=== PATIENT | female | born 1940 | race Caucasian/White ===

== ENCOUNTER 2024-06-13 10:01 | Outpatient (OUT) | payer MEDICARE, SELFPAY ==
--- NOTE | 2024-06-13 | XR_ITS ---
[place] [id number] Patient Name: HORTENSIA FERNANDES MRN: [id number] date: 1940 Sex: F Assigned Patient Location: Current Patient Location: Accession/Order Number: [id number] Exam Date: 06/13/2024 10:40 Report Date: 06/15/2024 06:55 At the request of: ERLIN MATA Procedure: XR lumbar spine min 4V EXAMINATION: XR lumbar spine min 4V HISTORY: LUMBAR SPINE PAIN COMPARISON: No relevant comparison available. FINDINGS: BONES: Prominent right convex curvature of lumbar spine. Prominent grade 1 left lateral listhesis of L1 on 2 and L2 on 3. Multilevel degenerative facet arthropathy, marked on the left at L3-L4, L4-L5, L5-S1. No significant anteroposterior listhesis or change in alignment during flexion and extension. DISC SPACES: Moderate or greater narrowing at all lumbar levels. PARASPINOUS: Marked atherosclerotic disease of the aorta; no visible aneurysm. OTHER: Negative. XR/XR lumbar spine min 4V IMPRESSION: 1. Marked degenerative changes of lumbar spine. Electronically authenticated by: MANUEL MENA Date: 06/15/2024 06:55
== END 2024-06-13 10:02 | disposition home or self-care (01) ==
LOC: EC 10:01
PROVIDERS: Visit Provider Orthopaedic Surgery Orthopaedic Surgery of the Spine
DX: M54.50 Low back pain, unspecified (principal)
CPT/HCPCS: 72110